=== PATIENT | female | born 1980 | race Caucasian/White ===

== ENCOUNTER 2018-03-27 11:59 | Inpatient (IN) | payer MEDICAID ==
[2018-03-27] MEDS ORDERED: BUTORPHANOL 2 MG INJ IV (13:00)
[2018-03-27] MEDS ORDERED: OXYTOCIN 30 UNITS/LR 500 ML IV ×3 (13:00)
[2018-03-27] MEDS ORDERED: CARBOPROST 250 MCG INJ IM (13:00)
[2018-03-27] MEDS ORDERED: BUTORPHANOL 1 MG INJ IV (13:00)
[2018-03-27] MEDS ORDERED: MISOPROSTOL 200 MCG TAB PR (13:00)
[2018-03-27] MEDS ORDERED: OXYCODONE/ASPIRIN (4.88/325) TAB PO (13:00)
[2018-03-27] MEDS ORDERED: METHYLERGONOVINE 0.2 MG INJ IM (13:00)
[2018-03-27] MEDS ORDERED: LIDOCAINE 1% (MPF) 30 ML INJ INJ (13:00)
[2018-03-27] MEDS: AMPICILLIN 2 GM/NS (PMX) 100 ML IV ×2 (13:00→23:38)
[2018-03-27] MEDS: LACTATED RINGER'S 1,000 ML IV ×2 (14:32→22:15)
[2018-03-27 14:52] LABS: ADD MAN DIFF? NO
[2018-03-27 14:53] LABS: BASOPHILS % 0.4 % (0.0-2.0); EOSINOPHILS # 0.1 10^3/ul (0.0-0.5); EOSINOPHILS % 0.7 % (0.0-7.0); HEMATOCRIT 34.7 % (37.0-47.0); HEMOGLOBIN 11.1 g/dl (12.0-16.0); LYMPHOCYTES % 12.7 % (15.0-51.0); MEAN CORPUSCULAR HEMOGLOBIN 28.9 pg (29.0-33.0); MEAN CORPUSCULAR VOLUME 90.4 fl (82.0-101.0); MEAN PLATELET VOLUME 12.3 fl (7.4-10.4); MONOCYTE # 0.5 10^3/ul (0.3-0.9); NEUTROPHILS % 78.9 % (39.0-77.0); PLATELET COUNT 222 10^3/UL (140-415); RED BLOOD COUNT 3.84 10^6/ul (4.20-5.40); RED CELL DISTRIBUTION WIDTH 13.4 % (11.5-14.5)
[2018-03-27 14:53] LABS: WHITE BLOOD COUNT 7.5 10^3/ul (4.8-10.8)
[2018-03-27 15:27] LABS: PROTIME 12.3 Sec (11.9-14.9)
[2018-03-27 15:29] LABS: PARTIAL THROMBOPLASTIN TIME 28.6 Sec (23.0-35.0)
[2018-03-27] MEDS ORDERED: AMPICILLIN 1 GM/NS (PMX) 50 ML IV (17:00)
[2018-03-27 18:10] LABS: RAPID PLASMA REAGIN NONREACTIVE (NR)
[2018-03-27 20:24] LABS: ALANINE AMINOTRANSFERASE 57 IU/L (13-69); ALBUMIN 3.3 g/dl (3.3-4.9); ALBUMIN/GLOBULIN RATIO 0.91; ALKALINE PHOSPHATASE 220 IU/L (42-121); ANION GAP 12 (5-13); ASPARTATE AMINO TRANSFERASE 50 IU/L (15-46); BILIRUBIN,INDIRECT 0.1 mg/dl (0-1.1); BILIRUBIN,TOTAL 0.1 mg/dl (0.2-1.3); BLOOD UREA NITROGEN 7 mg/dl (7-20); CARBON DIOXIDE 20 mmol/L (21-31); CHLORIDE 106 mmol/L (97-110); CREATININE 0.37 mg/dl (0.44-1.00); Estimated GFR > 60 mL/min (>60); GLUCOSE 102 mg/dl (70-220); POTASSIUM 3.7 mmol/L (3.5-5.1); SODIUM 138 mmol/L (135-144); TOTAL PROTEIN 6.9 g/dl (6.1-8.1)
[2018-03-27] MEDS: URSODIOL 300 MG CAP PO (21:25)
[2018-03-27] MEDS: MISOPROSTOL 50 MCG CAPSULE PO (22:40)
[2018-03-27] MEDS: FAMOTIDINE 20 MG TAB PO (23:32)
[2018-03-28] MEDS: AMPICILLIN 1 GM/NS (PMX) 50 ML IV ×4 (03:36→16:00)
[2018-03-28] MEDS: MISOPROSTOL 50 MCG CAPSULE PO (04:27)
[2018-03-28] MEDS: DEXTROSE 5%-LR 1,000 ML IV (04:29)
[2018-03-28] MEDS: LACTATED RINGER'S 1,000 ML IV ×2 (06:46→09:42)
[2018-03-28] MEDS ORDERED: BETAMET NA PHOS/AC(6 MG/ML) 2 ML INJ SYG IM (09:00)
[2018-03-28] MEDS: URSODIOL 300 MG CAP PO ×2 (09:13→12:56)
[2018-03-28] MEDS: OXYTOCIN 30 UNITS/LR 500 ML IV ×3 (15:16→18:40)
[2018-03-28] MEDS ORDERED: MISOPROSTOL 200 MCG TAB PR ×2 (17:00)
[2018-03-28] MEDS ORDERED: CARBOPROST 250 MCG INJ IM ×2 (17:00)
[2018-03-28] MEDS ORDERED: DIPHENHYDRAMINE 25 MG CAP PO (17:00)
[2018-03-28] MEDS ORDERED: LANOLIN HPA 1 PKT TOP ×2 (17:00)
[2018-03-28] MEDS ORDERED: BENZOCAINE 20% 56 ML SPRAY TOP (17:00)
[2018-03-28] MEDS ORDERED: ONDANSETRON 4 MG INJ IV ×2 (17:00)
[2018-03-28] MEDS ORDERED: METHYLERGONOVINE 0.2 MG INJ IM ×2 (17:00)
[2018-03-28] MEDS ORDERED: NACL 0.9% 3 ML SYG IV ×2 (17:00)
[2018-03-28] MEDS ORDERED: METHYLERGONOVINE 0.2 MG TAB PO (17:00)
[2018-03-28] MEDS ORDERED: WITCH HAZEL/GLYCERIN PAD PR ×2 (17:00)
[2018-03-28] MEDS ORDERED: ZOLPIDEM 5 MG TAB PO (17:00)
[2018-03-28] MEDS ORDERED: OXYTOCIN 30 UNITS/LR 500 ML IV ×2 (17:00)
[2018-03-28] MEDS: SENNA/DOCUSATE NA (8.6MG/50MG) TAB PO (21:20)
[2018-03-29 08:04] LABS: ADD MAN DIFF? NO
[2018-03-29 08:10] LABS: WHITE BLOOD COUNT 10.3 10^3/ul (4.8-10.8)
[2018-03-29 08:10] LABS: BASOPHILS % 0.4 % (0.0-2.0); EOSINOPHILS # 0.1 10^3/ul (0.0-0.5); HEMATOCRIT 29.7 % (37.0-47.0); HEMOGLOBIN 9.7 g/dl (12.0-16.0); LYMPHOCYTES # 1.8 10^3/ul (0.8-2.9); LYMPHOCYTES % 17.4 % (15.0-51.0); MEAN CORPUSCULAR HEMOGLOBIN 29.6 pg (29.0-33.0); MEAN CORPUSCULAR HGB CONC 32.7 g/dl (32.0-37.0); MEAN CORPUSCULAR VOLUME 90.5 fl (82.0-101.0); MEAN PLATELET VOLUME 12.4 fl (7.4-10.4); MONOCYTE # 0.9 10^3/ul (0.3-0.9); MONOCYTES % 9.1 % (0.0-11.0); NEUTROPHIL # 7.4 10^3/ul (1.6-7.5); NEUTROPHILS % 71.4 % (39.0-77.0); PLATELET COUNT 184 10^3/UL (140-415); RED BLOOD COUNT 3.28 10^6/ul (4.20-5.40); RED CELL DISTRIBUTION WIDTH 13.4 % (11.5-14.5)
[2018-03-29] MEDS: SENNA/DOCUSATE NA (8.6MG/50MG) TAB PO ×2 (10:34→20:12)
[2018-03-29] MEDS: HYDROCODONE/APAP (5/325) TAB PO (20:12)
[2018-03-29] MEDS: FAMOTIDINE 20 MG TAB PO (21:07)
[2018-03-30] MEDS: MEASLES,MUMPS,RUBELLA VACCINE INJ SC* (09:00)
[2018-03-30] MEDS: SENNA/DOCUSATE NA (8.6MG/50MG) TAB PO (09:00)
[2018-03-30] MEDS ORDERED: VARICELLA VACCINE LIVE/PF 1,350 UNIT/0.5 ML ML SC* (09:00)
[2018-03-30] MEDS: DIPHTH/TET/ACEL PERTUSS (ADULT) 0.5 ML VIAL IM* (12:53)
== END 2018-03-30 14:20 | disposition home or self-care (01) | DRG 805 ==
LOC: OBT 11:59 → PP1 03-28 20:16 → L-D 12:01 → OBT 12:13 → L-D 12:13
PROC: 4A1HXCZ Monitoring of Products of Conception, Cardiac Rate, External Approach (ICD-10-PCS; 2018-03-27)
PROC: 3E0P7GC Introduction of Other Therapeutic Substance into Female Reproductive, Via Natural or Artificial Opening (ICD-10-PCS; 2018-03-27)
PROC: 10E0XZZ Delivery of Products of Conception, External Approach (ICD-10-PCS; principal; 2018-03-28)
PROC: 10907ZC Drainage of Amniotic Fluid, Therapeutic from Products of Conception, Via Natural or Artificial Opening (ICD-10-PCS; 2018-03-28)
PROC: 3E0234Z Introduction of Serum, Toxoid and Vaccine into Muscle, Percutaneous Approach (ICD-10-PCS; 2018-03-29)
PROC: 3E0234Z Introduction of Serum, Toxoid and Vaccine into Muscle, Percutaneous Approach (ICD-10-PCS; 2018-03-30)
DX: O26.62 Liver and biliary tract disorders in childbirth (principal); K83.1 Obstruction of bile duct; Z37.0 Single live birth; Z3A.36 36 weeks gestation of pregnancy; Z23 Encounter for immunization
CPT/HCPCS: 76815; 76818; 80053; 85025; 85610; 85730; 86592; 86850; 86900; 86901; 88307; 90686; 90715

== ENCOUNTER 2018-07-14 10:15 | Day surgery (SDC) | payer MEDICAID ==
[2018-07-14] MEDS: ACETAMINOPHEN 500 MG TAB PO ×2 (10:59→14:11)
[2018-07-14 11:14] LABS: ADD MAN DIFF? NO
[2018-07-14] MEDS ORDERED: BUPIVACAINE 0.25%/EPI (SDV) 30 ML INJ (11:20)
[2018-07-14 11:30] LABS: BASOPHILS % 0.3 % (0.0-2.0); EOSINOPHILS # 0.1 10^3/ul (0.0-0.5); EOSINOPHILS % 1.7 % (0.0-7.0); HEMATOCRIT 38.6 % (37.0-47.0); HEMOGLOBIN 12.9 g/dl (12.0-16.0); LYMPHOCYTES # 1.6 10^3/ul (0.8-2.9); LYMPHOCYTES % 22.7 % (15.0-51.0); MEAN CORPUSCULAR HEMOGLOBIN 29.7 pg (29.0-33.0); MEAN CORPUSCULAR HGB CONC 33.4 g/dl (32.0-37.0); MEAN CORPUSCULAR VOLUME 88.7 fl (82.0-101.0); MEAN PLATELET VOLUME 11.3 fl (7.4-10.4); MONOCYTE # 0.6 10^3/ul (0.3-0.9); NEUTROPHIL # 4.7 10^3/ul (1.6-7.5); PLATELET COUNT 242 10^3/UL (140-415); RED BLOOD COUNT 4.35 10^6/ul (4.20-5.40); RED CELL DISTRIBUTION WIDTH 13.7 % (11.5-14.5)
[2018-07-14] MEDS ORDERED: OXYCODONE/ACETAMINOPHEN (5/325) TAB PO ×2 (11:30)
[2018-07-14] MEDS ORDERED: LABETALOL HCL 20MG INJ IV (11:30)
[2018-07-14] MEDS ORDERED: morphine (1 MG/ML) 10ML SYRINGE IV ×2 (11:30)
[2018-07-14] MEDS ORDERED: HYDROmorphONE 1 MG/5 ML IV SYRINGE IV ×2 (11:30)
[2018-07-14] MEDS ORDERED: DIPHENHYDRAMINE 50 MG INJ IV (11:30)
[2018-07-14] MEDS ORDERED: ALBUTEROL 0.083% (NEB) 2.5 MG/3 ML AMP HHN (11:30)
[2018-07-14] MEDS ORDERED: FENTAnyl 50 MCG/ML VIAL IV ×2 (11:30)
[2018-07-14] MEDS ORDERED: MEPERIDINE 25 MG INJ IV (11:30)
[2018-07-14] MEDS ORDERED: CEFAZOLIN 1 GM INJ (11:36)
[2018-07-14] MEDS ORDERED: ROCURONIUM 50 MG INJ (11:36)
[2018-07-14] MEDS ORDERED: LIDOCAINE 2% (SDV) 5 ML INJ (11:36)
[2018-07-14] MEDS ORDERED: PROPOFOL 40 ML (11:36)
[2018-07-14] MEDS ORDERED: FENTAnyl 50 MCG/ML VIAL (11:37)
[2018-07-14] MEDS ORDERED: MIDAZOLAM 1 MG/ML 2 ML INJ (11:37)
[2018-07-14 11:51] LABS: INR 1.02; PROTIME 13.5 Sec (11.9-14.9); PT RATIO 1.1
[2018-07-14 11:52] LABS: PARTIAL THROMBOPLASTIN TIME 33.2 Sec (23.0-35.0)
[2018-07-14] MEDS: BUPIVACAINE 0.25%/EPI (SDV) 30 ML INJ INJ (12:00)
[2018-07-14] MEDS ORDERED: FAMOTIDINE 20 MG INJ (12:42)
[2018-07-14] MEDS ORDERED: PHENYLephrine (100 MCG/ML) 10ML SYG (12:53)
[2018-07-14] MEDS ORDERED: SUGAMMADEX SODIUM 200 MG/2 ML VIAL IV (13:03)
[2018-07-14] MEDS ORDERED: NEOSTIGMINE 3 MG/3 ML SYRINGE (13:10)
[2018-07-14] MEDS ORDERED: GLYCOPYRROLATE 0.4 MG INJ (13:10)
[2018-07-14] MEDS: HYDROmorphONE 1 MG/5 ML IV SYRINGE IV (14:11)
[2018-07-14] MEDS: DOXYCYCLINE 100 MG TAB PO (14:11)
[2018-07-14] MEDS: ONDANSETRON 4 MG INJ IV (14:11)
[2018-07-14] MEDS: BUTORPHANOL 2 MG INJ IM (14:12)
== END 2018-07-14 15:51 | disposition home or self-care (01) ==
LOC: SDS 10:15
DX: Z30.2 Encounter for sterilization (principal)
CPT/HCPCS: 58670; 84703; 85025; 85610; 85730